=== PATIENT | male | born 1955 | race Caucasian/White ===

== ENCOUNTER 2021-12-01 14:56 | Emergency (ER) | payer OTHER ==
[~2021-12-01] VITALS: Ht 170.2 cm; Wt 78.6 kg
[~2021-12-01 14:56] MED LIST: BUPROBAN150 MG; LIPITOR10 MG; LISINOPRIL-HCT1 EAC2; NORCO 5-325 TA1 EACH PO; PENICILLIN V P500 MG PO; TYLENOL WITH C1 EACH PO
[2021-12-01] MEDS ORDERED: LISINOPRIL20 MG PO (15:11)
[2021-12-01] MEDS ORDERED: ROSUVASTATIN CA10 MG PO (15:11)
[2021-12-01] MEDS ORDERED: LO-DOSE ASPIRIN81 MG (15:12)
[2021-12-01] MEDS ORDERED: CEPHALEXIN500 M1 PO (16:48)
== END 2021-12-01 16:56 | disposition home or self-care (01) ==
LOC: ED 14:56
DX: L03.113 Cellulitis of right upper limb (principal); I10 Essential (primary) hypertension; E78.00 Pure hypercholesterolemia, unspecified; Z79.899 Other long term (current) drug therapy; Z79.82 Long term (current) use of aspirin
CPT/HCPCS: 36415; 80048; 82553; 85025; 99283